=== PATIENT | female | born 1945 | race Caucasian/White ===

== ENCOUNTER → 2021-10-04 | Outpatient (CLI) | payer MEDICARE ==
[2021-10-04 15:01] LABS: POTASSIUM 4.4 MMOL/L (3.6-5.0)
[2021-10-04 15:02] LABS: CALCIUM 9.2 MG/DL (8.5-10.1)
[2021-10-04 15:06] LABS: CREATININE SERUM 1.33 MG/DL (0.60-1.30); PHOSPHORUS 3.7 MG/DL (2.3-4.7)
== END ==
LOC: LAB 14:32
PROVIDERS: ATTEND Internal Medicine Nephrology
DX: N18.32 Chronic kidney disease, stage 3b (principal)
CPT/HCPCS: 36415; 80069

== ENCOUNTER 2021-12-07 19:03 | Emergency (ER) | payer MEDICARE ==
[~2021-12-07] VITALS: Ht 168 cm; Wt 99.3 kg
[2021-12-07 19:59] LABS: BASOPHILS # (AUTO) 0.1 10^3/uL (0.0-0.1); BASOPHILS % (AUTO) 1 % (0-10); EOSINOPHILS # (AUTO) 0.2 10^3/uL (0.0-0.3); EOSINOPHILS % (AUTO) 3 % (0-10); HEMATOCRIT 38 % (35-52); HEMOGLOBIN 12.1 g/dL (11.5-16.0); LYMPHOCYTES # (AUTO) 2.5 10^3/uL (1.0-4.0); LYMPHOCYTES % (AUTO) 40 % (12-44); MEAN CORPUSCULAR HEMOGLOBIN 29 pg (25-34); MEAN CORPUSCULAR HGB CONC 32 g/dL (32-36); MEAN CORPUSCULAR VOLUME 90 fL (80-99); MEAN PLATELET VOLUME 12.3 fL (9.0-12.2); MONOCYTES # (AUTO) 0.6 10^3/uL (0.0-1.0); MONOCYTES % (AUTO) 9 % (0-12); NEUTROPHILS # (AUTO) 2.9 10^3/uL (1.8-7.8); NEUTROPHILS % (AUTO) 47 % (42-75); PLATELET COUNT 155 10^3/uL (130-400); WHITE BLOOD COUNT 6.2 10^3/uL (4.3-11.0)
[2021-12-07] MEDS ORDERED: LACTATED RINGERS 1,000 ML IV ONE (20:00)
[2021-12-07] MEDS ORDERED: fentaNYL INJ 100 MCG/2 ML AMP IVP ONE (20:00)
[2021-12-07 20:07] LABS: ALBUMIN 3.8 GM/DL (3.2-4.5); POTASSIUM 3.6 MMOL/L (3.6-5.0)
[2021-12-07 20:08] LABS: CALCIUM 9.1 MG/DL (8.5-10.1)
[2021-12-07 20:09] LABS: TOTAL PROTEIN 6.7 GM/DL (6.4-8.2)
[2021-12-07 20:11] LABS: BILIRUBIN,TOTAL 0.4 MG/DL (0.1-1.0)
[2021-12-07 20:13] LABS: CREATININE SERUM 1.37 MG/DL (0.60-1.30)
[2021-12-07 20:15] LABS: ERYTHROCYTE SEDIMENTATION RATE 12 MM/HR (0-30)
[2021-12-07 21:03] LABS: BILIRUBIN,URINE NEGATIVE (NEGATIVE); CLARITY,URINE CLEAR; COLOR,URINE YELLOW; GLUCOSE, URINE (UA) NEGATIVE (NEGATIVE); KETONES,URINE NEGATIVE (NEGATIVE); LEUKOCYTE ESTERASE ,URINE NEGATIVE (NEGATIVE); NITRITE,URINE NEGATIVE (NEGATIVE); PH,URINE 6.5 (5-9); PROTEIN,URINE NEGATIVE (NEGATIVE)
[2021-12-07 21:17] LABS: BACTERIA,URINE NEGATIVE /HPF; SQUAMOUS EPITHELIAL CELL,UR 0-2 /HPF; WBC,URINE 0-2 /HPF
--- NOTE | 2021-12-07 22:54 | Diagnostic Imaging Report ---
PROCEDURE: CT abdomen and pelvis without contrast. TECHNIQUE: Multiple contiguous axial images were obtained through the abdomen and pelvis without the use of intravenous contrast. Auto Exposure Controls were utilized during the CT exam to meet ALARA standards for radiation dose reduction. INDICATION: Nausea and vomiting. Dizziness. Flank pain. COMPARISON: None. FINDINGS: The heart is unremarkable. The lung bases are clear. The left kidney is surgically absent. No hydronephrosis or renal calculi in the right kidney. No perinephric fat stranding. The urinary bladder is unremarkable. The liver, spleen, pancreas and adrenal glands have a normal noncontrast CT appearance. The gallbladder is surgically absent. There is no pathologically enlarged mesenteric or retroperitoneal adenopathy. The bowel loops are nondilated. Scattered diverticula are present without evidence of acute diverticulitis. There is no free fluid or free air. No acute osseous abnormalities. There is calcified aortic and iliac atherosclerotic plaque without aneurysm. There is no free air, loculated collection, or adenopathy in the pelvis. IMPRESSION: 1. No acute abnormality in the abdomen and pelvis. No bowel resection, free fluid or free air. 2. Surgically absent left kidney. No renal calculi or hydronephrosis in the right kidney. Dictated by: Dictated on workstation # [id number]
[2021-12-07] MEDS ORDERED: HYOS0.1283 SL (23:29)
[2021-12-07] MEDS ORDERED: ACHD5005 PO (23:29)
[2021-12-07] MEDS ORDERED: ONDA4TAB11 SL (23:29)
[2021-12-07] MEDS ORDERED: HYDROcodone/APAP 5 MG/325 MG (LORTAB) TAB PO ONE (23:30)
--- NOTE | 2021-12-07 23:30 | ED General ---
General Chief Complaint: Abdominal/GI Problems Stated Complaint: CRAMPS, NAUSEA, KNEE PAIN, SWOLLEN ANKLES Nursing Triage Note: C/O ABDOMINAL CRAMPING, NAUSEA AND DIARRHEA THAT STARTED YESTERDAY. 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 oz. kg; 35.00 BMI Method: Progress/Results/Core Measures Suspected Sepsis SIRS Temperature: Pulse: 57 Respiratory Rate: 18 Laboratory Tests 12/07/21 19:26: White Blood Count 6.2 Blood Pressure 196 /94 Mean: 128 Laboratory Tests 12/07/21 19:26: Creatinine 1.37H, Platelet Count 155, Total Bilirubin 0.4 Results/Orders Lab Results Laboratory Tests Test 12/07/21 19:24 12/07/21 19:26 12/07/21 20:53 Range/Units Influenza Type A (RT-PCR) Not Detected Not Detecte Influenza Type B (RT-PCR) Not Detected Not Detecte SARS-CoV-2 RNA (RT-PCR) Not Detected Not Detecte White Blood Count 6.2 4.3-11.0 10^3/uL Red Blood Count 4.19 3.80-5.11 10^6/uL Hemoglobin 12.1 11.5-16.0 g/dL Hematocrit 38 35-52 % Mean Corpuscular Volume 90 80-99 fL Mean Corpuscular Hemoglobin 29 25-34 pg Mean Corpuscular Hemoglobin Concent 32 32-36 g/dL Red Cell Distribution Width 13.7 10.0-14.5 % Platelet Count 155 130-400 10^3/uL Mean Platelet Volume 12.3 H 9.0-12.2 fL Immature Granulocyte % (Auto) 0 % Neutrophils (%) (Auto) 47 42-75 % Lymphocytes (%) (Auto) 40 12-44 % Monocytes (%) (Auto) 9 0-12 % Eosinophils (%) (Auto) 3 0-10 % Basophils (%) (Auto) 1 0-10 % Neutrophils # (Auto) 2.9 1.8-7.8 10^3/uL Lymphocytes # (Auto) 2.5 1.0-4.0 10^3/uL Monocytes # (Auto) 0.6 0.0-1.0 10^3/uL Eosinophils # (Auto) 0.2 0.0-0.3 10^3/uL Basophils # (Auto) 0.1 0.0-0.1 10^3/uL Immature Granulocyte # (Auto) 0.0 0.0-0.1 10^3/uL Erythrocyte Sedimentation Rate 12 0-30 MM/HR Sodium Level 139 135-145 MMOL/L Potassium Level 3.6 3.6-5.0 MMOL/L Chloride Level 104 98-107 MMOL/L Carbon Dioxide Level 26 21-32 MMOL/L Anion Gap 9 5-14 MMOL/L Blood Urea Nitrogen 19 H 7-18 MG/DL Creatinine 1.37 H 0.60-1.30 MG/DL Estimat Glomerular Filtration Rate 41 BUN/Creatinine Ratio 14 Glucose Level 88 70-105 MG/DL Calcium Level 9.1 8.5-10.1 MG/DL Corrected Calcium 9.3 8.5-10.1 MG/DL Total Bilirubin 0.4 0.1-1.0 MG/DL Aspartate Amino Transf (AST/SGOT) 19 5-34 U/L Alanine Aminotransferase (ALT/SGPT) 15 0-55 U/L Alkaline Phosphatase 92 40-136 U/L C-Reactive Protein High Sensitivity 0.19 0.00-0.50 MG/DL Total Protein 6.7 6.4-8.2 GM/DL Albumin 3.8 3.2-4.5 GM/DL Urine Color YELLOW Urine Clarity CLEAR Urine pH 6.5 5-9 Urine Specific [place] 1.015 L 1.016-1.022 Urine Protein NEGATIVE NEGATIVE Urine Glucose (UA) NEGATIVE NEGATIVE Urine Ketones NEGATIVE NEGATIVE Urine Nitrite NEGATIVE NEGATIVE Urine Bilirubin NEGATIVE NEGATIVE Urine Urobilinogen 0.2 < = 1.0 MG/DL Urine Leukocyte Esterase NEGATIVE NEGATIVE Urine RBC (Auto) NEGATIVE NEGATIVE Urine RBC NONE /HPF Urine WBC 0-2 /HPF Urine Squamous Epithelial Cells 0-2 /HPF Urine Renal Epithelial Cells NONE /HPF Urine Crystals NONE /LPF Urine Bacteria NEGATIVE /HPF Urine Casts NONE /LPF Urine Mucus NEGATIVE /LPF Urine Culture Indicated NO My Orders Orders - LASHANDA STARK MD Fentanyl Inj (Sublimaze Injection) (12/07/21 20:00) Ed Iv/Invasive Line Start (12/07/21 19:51) Lactated Ringers (Lr 1000 Ml Iv Solution (12/07/21 20:00) Cbc With Automated Diff (12/07/21 19:51) Comprehensive Metabolic Panel (12/07/21 19:51) Hs C Reactive Protein (12/07/21 19:51) Ua Culture If Indicated (12/07/21 19:51) Erythrocyte Sedimentation Rate (12/07/21 19:51) Covid 19 Inhouse Test (12/07/21 19:51) Influenza A And B By Pcr (12/07/21 19:51) Ct Abdomen/Pelvis Wo (12/07/21 21:40) Hydrocodone/Apap 5/325 Tablet (Lortab 5 (12/07/21 23:30) Medications Given in ED Current Medications Medications Dose Ordered Sig/Shade Route Start Time Stop Time Status Last Admin Dose Admin Fentanyl Citrate 25 mcg ONCE ONCE IVP 12/07/21 20:00 12/07/21 20:01 DC 12/07/21 20:02 25 MCG Lactated Ringer's 1,000 ml @ 0 mls/hr Q0M ONCE IV 12/07/21 20:00 12/07/21 20:01 DC 12/07/21 20:02 1,000 MLS/HR Vital Signs/I&O 12/07/21 19:15 Temp 35.8 Pulse 57 Resp 18 B/P (MAP) 196/94 (128) Pulse Ox 94 O2 Delivery Room Air Capillary Refill : Blood Pressure Mean: 128 Departure Impression Primary Impression: Pelvic pain Additional Impressions: Polyarthralgia Nausea Abdominal cramping Disposition: 01 HOME, SELF-CARE Condition: Improved Departure-Patient Inst. Decision time for Depature: 23:26 Patient Instructions: Abdominal Pain, Adult ED Add. Discharge Instructions: Start with a noncarbonated clear liquid diet and gradually advance your diet with small quantities of bland food as tolerated. You may take Tylenol (acetaminophen) up to 1000 mg every 6 hours as needed for mild pain. Use the hydrocodone as prescribed for more intense pain. For bowel cramping you may use Levsin (hyoscyamine) as prescribed. Take Zofran (ondansetron) as prescribed for nausea or vomiting. Follow-up with your primary care provider soon as possible. Return to the ER if you have worsening symptoms despite following these instructions. All discharge instructions reviewed with patient and/or family. Voiced understanding. Scripts Hydrocodone/Acetaminophen (Hydrocodone-Acetamin 5-325 mg) 5 Mg-325 Mg Tablet 1 TAB PO Q4H PRN for PAIN-MODERATE (5-7), #5 TAB Prov: LASHANDA STARK MD 12/07/21 Hyoscyamine Sulfate (Levsin-Sl) 0.125 Mg Tab.subl 0.125 MG SL Q4H PRN for CRAMPS, #10 TAB 0 Refills Prov: LASHANDA STARK MD 12/07/21 Ondansetron (Ondansetron Odt) 4 Mg Tab.rapdis 4 MG SL Q4H PRN for NAUSEA/VOMITING, #10 TAB Prov: LASHANDA STARK MD 12/07/21 LASHANDA STARK MD Dec 07, 2021 23:30
[2021-12-07 23:38] VITALS: BP 162/78
== END 2021-12-07 23:41 | disposition home or self-care (01) ==
LOC: EDUNIT# 19:03 → ER 19:07
DX: M25.572 Pain in left ankle and joints of left foot (principal); M25.571 Pain in right ankle and joints of right foot; R10.2 Pelvic and perineal pain; R11.0 Nausea; Z20.822 Contact with and (suspected) exposure to COVID-19
CPT/HCPCS: 36415; 74176; 80053; 81000; 85025; 85652; 86141; 87636

== ENCOUNTER 2021-12-09 05:33 | Outpatient (CLI) | payer MEDICARE ==
[~2021-12-09] VITALS: Ht 162.6 cm; Wt 100.0 kg
[~2021-12-09 05:33] MED LIST: ACHD5005 PO; HYOS0.1283 SL; ONDA4TAB11 SL
[2021-12-12] MEDS ORDERED: LEVO137T40 PO (09:17)
[2021-12-12] MEDS ORDERED: ROPI3TAB4 PO (09:17)
[2021-12-12] MEDS ORDERED: ALLO100T PO (09:17)
[2021-12-12] MEDS ORDERED: ESCI20TA39 PO (09:17)
[2021-12-12] MEDS ORDERED: TRAZ150T72 PO (09:17)
== END 2021-12-12 09:23 | disposition home or self-care (01) ==
LOC: PREOP 05:33
PROVIDERS: ATTEND Surgery
DX: Z01.818 Encounter for other preprocedural examination (principal)

== ENCOUNTER 2022-05-08 05:38 | Outpatient (CLI) | payer MEDICARE ==
[~2022-05-08] VITALS: Ht 162.5 cm; Wt 106.6 kg
[~2022-05-08 05:38] MED LIST changes: +ALLO100T PO; +ESCI20TA39 PO; +LEVO137T40 PO; +ROPI3TAB4 PO; +TRAZ150T72 PO
[2022-05-08] MEDS ORDERED: FURO-124 PO (10:31)
[2022-05-08] MEDS ORDERED: MAGN250C PO (10:31)
[2022-05-08] MEDS ORDERED: FLUT1BLS15 IH (10:31)
== END 2022-05-08 10:47 ==
LOC: PREOP 05:38
PROVIDERS: ATTEND Surgery
DX: Z01.818 Encounter for other preprocedural examination (principal); D17.22 Benign lipomatous neoplasm of skin and subcutaneous tissue of left arm; D17.21 Benign lipomatous neoplasm of skin and subcutaneous tissue of right arm

== ENCOUNTER 2022-05-11 12:49 | Day surgery (SDC) | payer MEDICARE ==
[~2022-05-11] VITALS: Ht 162 cm; Wt 106.6 kg
[2022-05-11] VITALS (10 sets, daily range): BP systolic 101–186; BP diastolic 57–92
[~2022-05-11 12:49] MED LIST changes: +FLUT1BLS15 IH; +FURO-124 PO; +MAGN250C PO
[2022-05-11] MEDS ORDERED: LACTATED RINGERS 1,000 ML IV PRN ×2 (13:00)
[2022-05-11] MEDS ORDERED: ceFAZolin INJECTION 2,000 MG in NS (IVPB) 50 ML IV ONE (13:15)
[2022-05-11] MEDS ORDERED: ACETAMINOPHEN 325 MG TABLET PO PRN (13:45)
[2022-05-11] MEDS ORDERED: morphine INJ 10 MG/ML 1ML (SYR OR VIAL) IVP PRN (13:45)
[2022-05-11] MEDS ORDERED: ONDANSETRON 4 MG/2 ML (SDV) Z0FRAN IVP PRN ×2 (13:45→16:00)
[2022-05-11] MEDS ORDERED: HYDROcodone/APAP 5 MG/325 MG (LORTAB) TAB PO ONE (13:45)
--- NOTE | 2022-05-11 13:45 | Progress Note-Pre Operative ---
Pre-Operative Progress Note Date H&P Reviewed: May 11, 2022 Time H&P Reviewed: 13:44 History & Physical: H&P Reviewed, Patient Examed, No changes noted Pre-Operative Diagnosis: Symptomatic multiple bilateral upper extremity lipomas DEYANIRA ROMEO APRN May 11, 2022 13:45
[2022-05-11] MEDS ORDERED: HYDR-3817 PO (13:46)
--- NOTE | 2022-05-11 13:47 | Discharge Inst-Surgical ---
D/C Lap Instructions-KIDO Reconcile Patient Problems Problems Reviewed?: Yes New, Converted, or Re-Newed RX: RX on Chart Follow Up Appt in 2 weeks Activity as tolerated No driving for 24 hours No driving while on pain medications Incentive Spirometry use every 2 hours while awake Regular Diet Symptoms to Report: Fever over 101 degree F, Nausea/Vomiting Infection Signs and Symptoms to report: Increased redness, Foul odor of wound, Increased drainage Bathing instructions: May shower Operative Area Clean/Dry; Keep incision clean/dry If any problems/questions: Contact your physician or go to Emergency Room DEYANIRA ROMEO APRN May 11, 2022 13:47
[2022-05-11] MEDS ORDERED: LIDOCAINE/EPI 1%-1:100,000 (XYLOCAINE) 30ML ONE (14:11)
--- NOTE | 2022-05-11 15:54 | Progress Note-Post Operative ---
Post-Operative Progess Note Surgeon (s)/Lens Grinder And Polisher (s) Surgeon JOSE A AGUILERA MD Lens Grinder And Polisher: none Pre-Operative Diagnosis Symptomatic multiple bilateral upper extremity lipomas Post-Operative Diagnosis sx upper bilateral post arm(rt 4x3cm, 2x2cm)(lt 3x2cm, 2x2cm). Procedure & Operative Findings Date of Procedure 05/11/22 Procedure Performed/Findings excision sx upper bilateral post arm(rt 4x3cm, 2x2cm)(lt 3x2cm, 2x2cm). Anesthesia Type general LMA Estimated Blood Loss Estimated blood loss (mL): minimal Specimens/Packing Specimens Removed upper extremity (rt 4x3cm, 2x2cm)(lt 3x2cm, 2x2cm). JOSE A AGUILERA MD May 11, 2022 15:54
--- NOTE | 2022-05-11 15:57 | Anesthesia-General Post-Op ---
General Patient Condition Mental Status/LOC: Same as Preop Cardiovascular: Satisfactory Nausea/Vomiting: Absent Respiratory: Satisfactory Pain: Controlled Complications: Absent Post Op Complications Complications None Follow Up Care/Instructions Patient Instructions None needed. Anesthesia/Patient Condition Patient Condition Patient is doing well, no complaints, stable vital signs, no apparent adverse anesthesia problems. No complications reported per nursing. VELIA MOHAN CRNA May 11, 2022 15:57
[2022-05-11] MEDS ORDERED: fentaNYL INJ 100 MCG/2 ML AMP IVP ONE (16:00)
[2022-05-11] MEDS ORDERED: MEPERIDINE (DEMEROL) INJ 50 MG/ML IVP ONE (16:00)
[2022-05-11] MEDS ORDERED: morphine INJ 10 MG/ML 1ML (SYR OR VIAL) IVP ONE (16:00)
--- NOTE | 2022-05-11 17:16 | OPERATIVE REPORT ---
DATE OF SERVICE: 05/11/2022 ATTENDING PRIMARY CARE PHYSICIAN: Daniel Junior MD PREOPERATIVE DIAGNOSIS: Symptomatic bilateral upper extremity lipomas. POSTOPERATIVE DIAGNOSIS: Symptomatic bilateral upper extremity lipomas with two on the right, dimensions 4 x 3 cm in size and 2 x 2 cm in size. On the left, 3 x 2 cm in size and 2 x 2 cm in size. PROCEDURE: Excision of right upper extremity lipoma, 4 x 3 and 2 x 2 cm, left 3 x 2 cm, 2 x 2 cm. SURGEON: Jose A Aguilera MD TOMBSTONE ERECTOR: Edd Perez APRN ANESTHESIA: General laryngeal mask airway. ESTIMATED BLOOD LOSS: Minimal. FINDINGS: Multiple benign lipomas with the symptomatic ones as stated. DISPOSITION: The patient tolerated the procedure well. INDICATIONS: The patient is a 77-year-old female who has had multiple growths in the subcutaneous tissue for as long as she can remember. She has had several of these removed in the past and they were benign lipomas. Over the years, she has developed many more with the majority on her upper extremities. There are two located along the distal aspect of the triceps tendon bilaterally, which had become painful and have grown larger in size. Upon examination, there were two lesions bilaterally, which were rubbery, mobile and consistent with benign subcutaneous lipomas. DESCRIPTION OF PROCEDURE: The patient was brought to the operating room, laid supine on the table. After adequate IV pain sedative medications and general laryngeal mask airway intubation, the bilateral upper extremities were prepped and draped in standard surgical fashion. We first proceeded with excision of the left upper extremity lesions. The inferior lesion was excised after the skin was anesthetized using 1% lidocaine with epinephrine. This was done with blunt dissection as well as electrocautery. The dimensions were 2 x 2 cm. Another one just superior was identified and this was excised in a similar manner and this was 4 x 3 cm in size. Good hemostasis was observed and both skin incisions were closed using 4-0 Monocryl running subcuticular sutures. We then proceeded with excision of the right upper extremity lipomas. The inferior lesion was again approximately 2 x 2 cm in size and excised after the skin was anesthetized using 1% lidocaine with epinephrine and a skin incision made using #15 blade. The lesion was then excised using blunt dissection as well as electrocautery. This was 2 x 2 cm in size. Another similar lesion just superior was 4 x 3 cm in size and excised in a similar manner. Good hemostasis was observed and both skin incisions were closed using 4-0 Monocryl running subcuticular sutures. All wounds were then cleaned and covered with Dermabond. The patient tolerated the procedure well. We will confirm that these are benign lipomas by sending the lesions to pathology. She has multiple lipomas throughout her upper extremities due to a genetic predisposition, however, the vast majority of these are small and recommendation is just to continue to monitor these lesions and only they do become larger and symptomatic, we will have her followup and remove only the symptomatic lesions. Job ID: [id number] DocumentID: [id number] Dictated Date: 05/11/2022 16:00:33 Hi Teacher Date: 05/11/2022 17:14:00 Dictated By: JOSE A AGUILERA MD
== END 2022-05-11 17:42 ==
LOC: SDC 12:49
PROVIDERS: ATTEND Surgery
DX: D17.22 Benign lipomatous neoplasm of skin and subcutaneous tissue of left arm (principal); D17.21 Benign lipomatous neoplasm of skin and subcutaneous tissue of right arm; E66.01 Morbid (severe) obesity due to excess calories; Z68.41 Body mass index [BMI] 40.0-44.9, adult
CPT/HCPCS: 87081

== ENCOUNTER → 2022-08-30 | Outpatient (CLI) | payer MEDICARE, MEDICAID ==
[~2022-08-30] MED LIST changes: +HYDR-3817 PO
--- NOTE | 2022-08-30 13:09 | Diagnostic Imaging Report ---
INDICATION: Knee pain. COMPARISON: None FINDINGS: Multiple radiographic views of both knees were obtained. No acute fracture or dislocation is seen on either side. Osseous structures are intact. Joint spaces are maintained, bilaterally. Mild asymmetric osteoarthritic changes of the left knee are noted. This consists of joint space narrowing with small osteophyte formations, greatest involving the medial tibiofemoral and patellar trochlear compartments. No large joint effusion is seen on either side. No unexpected radiopaque foreign bodies are identified. IMPRESSION: 1. Mild osteoarthritic changes of the left knee. 2. No acute fracture or dislocation of either knee. Dictated by: Dictated on workstation # [id number]
== END ==
LOC: RAD 09:49
PROVIDERS: ATTEND Family Medicine
DX: M17.12 Unilateral primary osteoarthritis, left knee (principal); M25.561 Pain in right knee

== ENCOUNTER → 2022-11-22 | Outpatient (CLI) | payer MEDICARE, MEDICAID | LOC: CARD 11:19 | PROVIDERS: ATTEND Internal Medicine Cardiovascular Disease | DX: R06.09 Other forms of dyspnea (principal) | CPT/HCPCS: 93306 ==

== ENCOUNTER 2022-12-22 12:13 | Emergency (ER) | payer MEDICARE, MEDICAID ==
[~2022-12-22] VITALS: Ht 170 cm; Wt 102.0 kg
[2022-12-22 12:22] VITALS: BP 115/63
--- NOTE | 2022-12-22 12:38 | ED Cardiac General ---
History of Present Illness General Chief Complaint: Cardiac/General Problems Stated Complaint: LIGHTHEADED | SOB Nursing Triage Note: ARRIVED VIA AMB TO ROOM 05 WITH COMPLAINTS OF LIGHT HEADED, HEART RACING, AND SOA. RECENTLY DIAGNOSED WITH AFIB. Source: patient Exam Limitations: no limitations History of Present Illness Date Seen by Provider: Dec 22, 2022 Time Seen by Provider: 12:25 Initial Comments 77-year-old female presents to the ER with complaints of 1 week of feeling lightheaded, dizziness, fatigue, and "winded." She reports that she gets short of air with exertion. She reports that sometimes she feels as though the room is spinning, states she gets dizzy with moving her head especially when she looks downward. She reports approximately 30 minutes prior to arrival she had a short episode of chest pain. She also endorses some nausea. Denies fevers, cough, abdominal pain, diarrhea, vomiting. Denies history of DVT. She reports she was diagnosed with atrial fibrillation approximately 1 month ago and started on Eliquis. She is not on any rate control medications. She reports that she frequently has swelling in her ankles, states that there has been no change to this. She reports that her roof foreman is testing her for congestive heart failure. She reports she is unable to sleep laying flat due to becoming short of breath. Allergies and Home Medications Allergies Coded Allergies: amlodipine (Verified Allergy, Unknown, 05/08/22) "heartburn, burning in chest" Patient Home Medication List Home Medication List Reviewed: Yes Allopurinol (Allopurinol) 100 Mg Tablet, 200 MG PO HS, (Reported) Entered as Reported by: IGOR BRAUN on 12/12/21 0917 Fluticasone/Umeclidin/Vilanter (Trelegy Ellipta 200-62.5-25) 200-62.5 Blst.w.dev, 1 EACH IH DAILY, (Reported) Entered as Reported by: BASSEM MCGRAW on 05/08/22 1031 Furosemide (Lasix) 40 Mg Tablet, 40 MG PO PRN, (Reported) Entered as Reported by: BASSEM MCGRAW on 05/08/22 1031 Hydrocodone/Acetaminophen (Hydrocodone-Acetamin 7.5-325) 7.5 Mg-325 Mg Tablet, 1 EACH PO Q4H PRN for PAIN-BREAKTHROUGH Prescribed by: DEYANIRA ROMEO on 05/11/22 1346 Levothyroxine Sodium (Euthyrox) 137 Mcg Tablet, 137 MCG PO HS, (Reported) Entered as Reported by: IGOR BRAUN on 12/12/21 0917 Magnesium Citrate and Oxide (Magnesium) 250 Mg Capsule, 500 MG PO DAILY, (Reported) Entered as Reported by: BASSEM MCGRAW on 05/08/22 1031 Meclizine HCl (Meclizine HCl) 25 Mg Tablet, 25 MG PO Q6H Prescribed by: Celsa Pandya on 12/22/22 1532 Ropinirole HCl (Ropinirole HCl) 3 Mg Tablet, 6 MG PO HS, (Reported) Entered as Reported by: IGOR BRAUN on 12/12/21 0917 Trazodone HCl (Trazodone HCl) 150 Mg Tablet, 150 MG PO HS, (Reported) Entered as Reported by: IGOR BRAUN on 12/12/21 09 Review of Systems Review of Systems Constitutional: see HPI Past Hdvbkux-Bjlkgo-Sbguie Hx Patient Social History Tobacco Use?: No Substance use?: No Alcohol Use?: No Immunizations Up To Date First/Initial COVID19 Vaccinat: 07/10/2020 Second COVID19 Vaccination Sebastien: 08/03/2020 Third COVID19 Vaccination Date: 07/10/2020 Seasonal Allergies Seasonal Allergies: Yes Past Medical History Surgeries: Yes (left kidney, LIPOMAS ) Appendectomy, Section, Gallbladder, Nephrectomy, Thyroidectomy, Tonsillectomy Respiratory: Yes (NODULES IN LUNGS) Asthma, Sleep Apnea, COPD Currently Using CPAP: No Currently Using BIPAP: No Cardiac: No Hypertension Neurological: Yes Headaches /Migraines Genitourinary: Yes (hx renal ca-hx left nephrectomy 2008, chronic kidney disease) Gastrointestinal: Yes Gastroesophageal Reflux, Gall Bladder Disease Musculoskeletal: Yes (spinal stenosis, restless legs, uses W/C) Arthritis, Fibromyalgia, Gout Endocrine: No (hx left hemithyroidectomy) Hypothyroidsim HEENT: Yes Cataract, Macular Degeneration Cancer: Yes Kidney Did You Recieve Any Treatments: Yes What Type of Treatment Did You: Surgical Intervention Psychosocial: Yes Anxiety, Depression Integumentary: No Blood Disorders: No Physical Exam Vital Signs Vital Signs - First Documented 12/22/22 12:22 Temp 36.3 Pulse 87 Resp 16 B/P (MAP) 115/63 (80) Pulse Ox 96 O2 Delivery Room Air Capillary Refill : Less Than 3 Seconds Height, Weight, BMI Height: '" Weight: lbs. oz. kg; 35.00 BMI Method: General Appearance: No Apparent Distress, WD/WN HEENT: PERRL/EOMI, TMs Normal Neck: Full Range of Motion, Normal Inspection, Supple Respiratory: Lungs Clear, Normal Breath Sounds, No Accessory Muscle Use, No Respiratory Distress Cardiovascular: Regular Rate, Rhythm Extremity: Pedal Edema Neurologic/Psychiatric: Alert, Normal Mood/Affect, acidizer water well II-XII Norm as Tested Skin: Normal Color, Warm/Dry Progress/Results/Core Measures Results/Orders Lab Results Laboratory Tests Test 12/22/22 12:45 12/22/22 14:45 Range/Units White Blood Count 6.3 4.3-11.0 10^3/uL Red Blood Count 4.28 3.80-5.11 10^6/uL Hemoglobin 12.6 11.5-16.0 g/dL Hematocrit 39 35-52 % Mean Corpuscular Volume 90 80-99 fL Mean Corpuscular Hemoglobin 29 25-34 pg Mean Corpuscular Hemoglobin Concent 33 32-36 g/dL Red Cell Distribution Width 13.1 10.0-14.5 % Platelet Count 169 130-400 10^3/uL Mean Platelet Volume 11.8 9.0-12.2 fL Immature Granulocyte % (Auto) 0 % Neutrophils (%) (Auto) 61 42-75 % Lymphocytes (%) (Auto) 28 12-44 % Monocytes (%) (Auto) 8 0-12 % Eosinophils (%) (Auto) 3 0-10 % Basophils (%) (Auto) 1 0-10 % Neutrophils # (Auto) 3.8 1.8-7.8 10^3/uL Lymphocytes # (Auto) 1.7 1.0-4.0 10^3/uL Monocytes # (Auto) 0.5 0.0-1.0 10^3/uL Eosinophils # (Auto) 0.2 0.0-0.3 10^3/uL Basophils # (Auto) 0.1 0.0-0.1 10^3/uL Immature Granulocyte # (Auto) 0.0 0.0-0.1 10^3/uL Prothrombin Time 15.6 H 12.2-14.7 SEC INR Comment 1.2 0.8-1.4 Activated Partial Thromboplast Time 35 24-35 SEC Sodium Level 141 135-145 MMOL/L Potassium Level 3.7 3.6-5.0 MMOL/L Chloride Level 105 98-107 MMOL/L Carbon Dioxide Level 29 21-32 MMOL/L Anion Gap 7 5-14 MMOL/L Blood Urea Nitrogen 20 H 7-18 MG/DL Creatinine 1.45 H 0.60-1.30 MG/DL Estimat Glomerular Filtration Rate 38 BUN/Creatinine Ratio 14 Glucose Level 78 70-105 MG/DL Calcium Level 9.6 8.5-10.1 MG/DL Corrected Calcium 9.7 8.5-10.1 MG/DL Magnesium Level 2.0 1.6-2.4 MG/DL Total Bilirubin 0.5 0.1-1.0 MG/DL Aspartate Amino Transf (AST/SGOT) 18 5-34 U/L Alanine Aminotransferase (ALT/SGPT) 13 0-55 U/L Alkaline Phosphatase 80 40-136 U/L Troponin I < 0.028 < 0.028 <0.028 NG/ML B-Type Natriuretic Peptide 157.1 H <100.0 PG/ML Total Protein 6.6 6.4-8.2 GM/DL Albumin 3.9 3.2-4.5 GM/DL Thyroid Stimulating Hormone (TSH) 0.30 L 0.35-4.94 UIU/ML My Orders Orders - CELSA MORALES R [employer] Cbc With Automated Diff (12/22/22 12:38) Magnesium (12/22/22 12:38) Chest 1 View, Ap/Pa Only (12/22/22 12:38) Comprehensive Metabolic Panel (12/22/22 12:38) Protime With Inr (12/22/22 12:38) Partial Thromboplastin Time (12/22/22 12:38) Monitor-Rhythm Ecg Trace Only (12/22/22 12:38) Ed Iv/Invasive Line Start (12/22/22 12:38) Bnp Amanda (12/22/22 12:38) Troponin I Amanda (12/22/22 12:38) Ns Iv 500 Ml (Sodium Chloride 0.9%) (12/22/22 13:30) Meclizine Tablet (Antivert Tablet) (12/22/22 13:30) Thyroid Stimulating Hormone (12/22/22 13:49) Troponin I [place] (12/22/22 14:34) Medications Given in ED Current Medications Medications Dose Ordered Sig/Shade Route Start Time Stop Time Status Last Admin Dose Admin Meclizine HCl 25 mg ONCE ONCE PO 12/22/22 13:30 12/22/22 13:31 DC 12/22/22 13:23 25 MG Sodium Chloride 500 ml @ 0 mls/hr Q0M ONCE IV 12/22/22 13:30 12/22/22 13:31 DC 12/22/22 13:24 500 MLS/HR Vital Signs/I&O 12/22/22 12/22/22 12:22 13:28 Temp 36.3 Pulse 87 52 Resp 16 18 B/P (MAP) 115/63 (80) 104/61 (75) Pulse Ox 96 94 O2 Delivery Room Air Room Air Blood Pressure Mean: 80 Progress Progress Note : Progress Note Patient seen and evaluated, resting comfortably in bed, no acute distress. Based on exam and symptoms, work-up initiated including CBC, CMP, coags, trop onin, BNP, chest x-ray, EKG. Considered D-dimer, but patient's Wells score is 0, will defer at this time. Review of chart revealed that patient had an echo completed on 11/25/22. It showed an EF of 55 to 60% and the heart size was normal. 1353 Labs reviewed. CBC grossly normal. CMP shows elevated creatinine 1.45, elevated BUN 20, decreased GFR 38. These are similar to labs drawn 1 year ago. Troponin negative. BNP slightly elevated 157.1. Coags show slightly elevated PT 15.6. Patient's heart rate was initially in the 70s upon arrival, since she has been in the room and has decreased to the 50s. TSH added on since patient takes levothyroxine. 1528 repeat troponin negative. Patient ambulated to and from bathroom without any dizziness or shortness of breath. Oxygen remained stable, heart rate remained stable. Patient reports that she is feeling better. Will discharge with prescription for meclizine. Patient instructed to keep up her water intake. Patient instructed to follow-up Dr. Childress and her primary care provider. Discharge instructions and return precautions provided. Initial ECG Impression Date: Dec 22, 2022 Initial ECG Impression Time: 12:31 Initial ECG Rate: 69 Initial ECG Rhythm: Normal Sinus, PVC Initial ECG Intervals: Normal Initial ECG Impression: Normal Initial ECG Comparisson: No Previous ECG Available Departure Impression Primary Impression: Vertigo Disposition: 01 HOME, SELF-CARE Condition: Stable Departure-Patient Inst. Decision time for Depature: 15:30 Referrals: DAISY LINDSAY MD (PCP/Family) Primary Care Physician Patient Instructions: Vertigo (a type of dizziness) Add. Discharge Instructions: Take meclizine up to 4 times a day as needed for dizziness. Follow-up with Dr. Childress regarding your slightly low heart rate. Follow-up with your primary care provider regarding your decreased TSH. Return for severe dizziness, severe shortness of breath, chest pain, passing out, or any other new, concerning, or worsening symptoms. All discharge instructions reviewed with patient and/or family. Voiced understa nding. Scripts Meclizine HCl (Meclizine HCl) 25 Mg Tablet 25 MG PO Q6H, #28 TAB 0 Refills Prov: CELSA MORALES APRN 12/22/22 CELSA MORALES APRN Dec 22, 2022 12:38
[2022-12-22 12:56] LABS: BASOPHILS # (AUTO) 0.1 10^3/uL (0.0-0.1); BASOPHILS % (AUTO) 1 % (0-10); EOSINOPHILS # (AUTO) 0.2 10^3/uL (0.0-0.3); EOSINOPHILS % (AUTO) 3 % (0-10); HEMATOCRIT 39 % (35-52); HEMOGLOBIN 12.6 g/dL (11.5-16.0); LYMPHOCYTES # (AUTO) 1.7 10^3/uL (1.0-4.0); LYMPHOCYTES % (AUTO) 28 % (12-44); MEAN CORPUSCULAR HEMOGLOBIN 29 pg (25-34); MEAN CORPUSCULAR HGB CONC 33 g/dL (32-36); MEAN CORPUSCULAR VOLUME 90 fL (80-99); MEAN PLATELET VOLUME 11.8 fL (9.0-12.2); MONOCYTES # (AUTO) 0.5 10^3/uL (0.0-1.0); MONOCYTES % (AUTO) 8 % (0-12); NEUTROPHILS # (AUTO) 3.8 10^3/uL (1.8-7.8); NEUTROPHILS % (AUTO) 61 % (42-75); PLATELET COUNT 169 10^3/uL (130-400); WHITE BLOOD COUNT 6.3 10^3/uL (4.3-11.0)
--- NOTE | 2022-12-22 13:04 | Diagnostic Imaging Report ---
EXAMINATION: Chest 1 view HISTORY: Chest pain COMPARISON: None available. FINDINGS: The lungs are clear without edema or pneumonia. No pleural effusion or pneumothorax. Heart size is normal. IMPRESSION: 1. Clear lungs. Dictated by: Dictated on workstation # [id number]
[2022-12-22 13:05] LABS: INR 1.2 (0.8-1.4); PROTHROMBIN TIME PATIENT 15.6 SEC (12.2-14.7)
[2022-12-22 13:06] LABS: ALBUMIN 3.9 GM/DL (3.2-4.5); CHLORIDE 105 MMOL/L (98-107); POTASSIUM 3.7 MMOL/L (3.6-5.0); SODIUM 141 MMOL/L (135-145)
[2022-12-22 13:07] LABS: CALCIUM 9.6 MG/DL (8.5-10.1)
[2022-12-22 13:08] LABS: GLUCOSE 78 MG/DL (70-105); TOTAL PROTEIN 6.6 GM/DL (6.4-8.2)
[2022-12-22 13:10] LABS: BILIRUBIN,TOTAL 0.5 MG/DL (0.1-1.0); CARBON DIOXIDE 29 MMOL/L (21-32)
[2022-12-22 13:12] LABS: ALKALINE PHOSPHATASE 80 U/L (40-136); CREATININE SERUM 1.45 MG/DL (0.60-1.30); GFR ESTIMATED 38
[2022-12-22 13:13] LABS: BUN/CREATININE RATIO 14
[2022-12-22 13:15] LABS: ALANINE AMINOTRANSFERASE 13 U/L (0-55)
[2022-12-22] MEDS ORDERED: MECLIZINE 25 MG (ANTIVERT) TAB PO ONE (13:30)
[2022-12-22] MEDS ORDERED: NS IV 500 ML 500 ML IV ONE (13:30)
[2022-12-22] MEDS ORDERED: MECL-149 PO (15:32)
== END 2022-12-22 15:41 | disposition home or self-care (01) ==
LOC: EDUNIT# 12:13 → ER 12:16
DX: R42 Dizziness and giddiness (principal); I48.91 Unspecified atrial fibrillation; E03.9 Hypothyroidism, unspecified; R79.89 Other specified abnormal findings of blood chemistry; Z79.01 Long term (current) use of anticoagulants
CPT/HCPCS: 36415; 71045; 80053; 83735; 83880; 84443; 84484; 85025; 85610; 85730; 93005; 93041

== ENCOUNTER → 2022-12-29 | Outpatient (CLI) | payer MEDICARE, MEDICAID ==
[~2022-12-29] MED LIST changes: +MECL-149 PO; +REGADENOSON 0.4 MG/5 ML SYR (LEXISCAN) IV ONE
[2022-12-29] MEDS: CATHETER FLUSH 10 ML SYR IVP PRN ×2 (07:17→09:17)
[2022-12-29 08:46] VITALS: BP 124/93
== END ==
LOC: CARD 06:50
PROVIDERS: ATTEND Internal Medicine Cardiovascular Disease
DX: R06.09 Other forms of dyspnea (principal)
CPT/HCPCS: 78452; 93017

== ENCOUNTER → 2023-03-27 | Outpatient (CLI) | payer MEDICARE ==
[~2023-03-27] MED LIST changes: -MECL-149 PO; +MECL-291 PO; -REGADENOSON 0.4 MG/5 ML SYR (LEXISCAN) IV ONE; +ROPI3TAB21 PO; -ROPI3TAB4 PO
--- NOTE | 2023-03-27 15:32 | Diagnostic Imaging Report ---
INDICATION: 77-year-old asymptomatic post menopausal female COMPARISON: None FINDINGS: AP Spine L1-L4: [BMD (g/cm2): 1.015] [T-Score: -1.5] [Z-Score: -0.9] [BMD Previous: na] [BMD % Change: na] LT Hip Neck: [BMD (g/cm2): 0.638] [T-Score: -2.9] [Z-Score: -1.7] LT Hip Total: [BMD (g/cm2):0.807] [T-Score:-1.6] [Z-Score: -0.6] [BMD Previous: na] [BMD % Change: na] RT Hip Neck: [BMD (g/cm2):0.677] [T-Score:-2.6] [Z-Score:-1.4] RT Hip Total: [BMD (g/cm2):0.816] [T-score:-1.5] [Z-Score:-0.6] [BMD Previous:na] [BMD % Change:na] *Indicates significant change from prior examination based on 95% confidence level. World Health Organization criteria for BMD interpretation classify patients as Normal (T-score at or above -1.0), Osteopenic (T-score between -1.0 and -2.5) or Osteoporotic (T-score at or below -2.5). LIMITATIONS AND MODIFICATION: None. FRACTURE RISK (FRAX SCORE): The ten year probability of (%): Major Osteoporotic Fracture: [18.6] Hip Fracture: [6.6] IMPRESSION: 1. Osteopenia (Low bone mass). 2. Baseline examination. 3. See below National Osteoporosis Foundation guidelines on when to potentially initiate pharmacologic therapy. Based on the National Osteoporosis Foundation Guidelines, pharmacologic treatment should be initiated in any of the following, unless clinical conditions suggest otherwise: * Any patient with prior fragility fracture of the hip or vertebrae. A spine fracture indicates 5X risk for subsequent spine fracture and 2X risk for subsequent hip fracture. * Osteoporosis (T-score <-2.5). * Postmenopausal women and men age 50 and older with low bone mass/osteopenia (T-score between -1.0 and -2.5) by DXA and 10-year major osteoporotic fracture greater than 20% or a 10-year probability of hip fracture greater than 3%. These fracture risks are supplied above in the FRAX score, if applicable. * Clinician judgement and/or patient preferences may indicate treatment for people with 10-year fracture probabilities above or below these levels. Dictated by: Dictated on workstation # [id number]
--- NOTE | 2023-03-29 12:33 | Diagnostic Imaging Report ---
Indication: Routine screening. Comparison is made with prior mammograms 08/26/2018 and 10/10/2016. 2-D and 3-D bilateral screening mammography was performed with CAD. Scattered fibroglandular densities are identified bilaterally. Benign-appearing nodules in the upper outer aspects of both breasts appears stable. No spiculated mass or malignant-appearing microcalcifications are identified. Axillae are unremarkable. IMPRESSION: BI-RADS Category 2 No mammographic features suspicious for malignancy are identified. ACR BI-RADS Category 2: Benign findings. Result letter will be mailed to the patient. Note: At least 10% of breast cancer is not imaged by mammography. Dictated by: Dictated on workstation # [id number]
== END ==
LOC: RAD 10:58
PROVIDERS: ATTEND Nurse Practitioner Family
DX: Z12.31 Encounter for screening mammogram for malignant neoplasm of breast (principal); M81.0 Age-related osteoporosis without current pathological fracture; E55.9 Vitamin D deficiency, unspecified
CPT/HCPCS: 77063; 77067; 77080

== ENCOUNTER → 2023-04-02 | Outpatient (CLI) | payer MEDICARE, MEDICAID ==
--- NOTE | 2023-04-02 16:24 | Diagnostic Imaging Report ---
PROCEDURE: MR imaging cervical spine without contrast. TECHNIQUE: Multiplanar, multisequence MR imaging of the cervical spine was performed without contrast. INDICATION: Chronic neck pain. COMPARISON: None. FINDINGS: No acute fracture or dislocation is seen in the cervical spine. There is straightening of the cervical spine. The vertebral body heights are well maintained. The bone marrow signal is unremarkable. No focal osseous lesions. The craniocervical junction is maintained. The cervical spinal cord demonstrates normal intrinsic signal. No epidural collections are seen. The included brainstem and posterior fossa have normal appearance. Multilevel degenerative changes are seen in the cervical spine with posterior disc bulges and uncovertebral arthropathy. C2-C3: Posterior disc bulge, uncovertebral arthropathy, and buckling of the ligamentum flavum results in moderate to severe spinal canal stenosis and mild right and no left foraminal narrowing. C3-C4: Posterior disc bulge, uncovertebral arthropathy, and buckling of the ligamentum flavum results in moderate spinal canal stenosis and mild to moderate right and moderate left foraminal stenosis. C4-C5: Posterior disc bulge, uncovertebral arthropathy, and buckling of the ligamentum flavum results in severe spinal canal stenosis and moderate to severe bilateral foraminal stenosis. C5-C6: Posterior disc bulge, uncovertebral arthropathy, and buckling of the ligamentum flavum results in severe spinal canal stenosis, severe left lateral recess stenosis, and moderate right and severe left foraminal stenosis. C6-C7: Posterior disc bulge, uncovertebral arthropathy, and buckling of the ligamentum flavum results in severe spinal canal stenosis and moderate right and moderate to severe left foraminal stenosis. C7-T1: Posterior disc bulge and uncovertebral arthropathy results in mild to moderate spinal canal narrowing and mild bilateral foraminal narrowing. The soft tissues of neck are unremarkable. IMPRESSION: 1. No acute fracture or dislocation of the cervical spine. 2. Multilevel degenerative changes in the cervical spine, greatest at C4-C5, C5-C6, and C6-C7. Dictated by: Dictated on workstation # [id number]
== END ==
LOC: RAD 13:00
PROVIDERS: ATTEND Nurse Practitioner Family
DX: M50.321 Other cervical disc degeneration at C4-C5 level (principal); M50.322 Other cervical disc degeneration at C5-C6 level; M50.323 Other cervical disc degeneration at C6-C7 level; M48.02 Spinal stenosis, cervical region
CPT/HCPCS: 72141

== ENCOUNTER → 2023-04-24 | Outpatient (CLI) | payer MEDICARE, MEDICAID ==
--- NOTE | 2023-04-24 15:43 | Diagnostic Imaging Report ---
INDICATION: Neck pain with cervical radiculopathy. Cervical spine 6 views Vertebral alignment is normal. There is disc space narrowing at C5-C6 and C6-C7. There is some narrowing of the facet joints at C3-C4 and C4-C5. There are some bone spurs at C4-C5 and C5-C6 causing slight neural foraminal encroachment. The odontoid is intact. Atlantoaxial relationship is normal. There is no fracture or prevertebral soft tissue swelling. IMPRESSION: Degenerative changes of the cervical spine. No acute abnormality seen. Dictated by: Dictated on workstation # [id number]
== END ==
LOC: RAD 14:48
PROVIDERS: ATTEND Nurse Practitioner
DX: M47.22 Other spondylosis with radiculopathy, cervical region (principal)
CPT/HCPCS: 72050